=== PATIENT | female | born 1970 | race Caucasian/White ===

== ENCOUNTER 2016-04-04 13:11 | Emergency (ER) | payer OTHER ==
[~2016-04-04] VITALS: Ht 157.5 cm; Wt 75.5 kg
[2016-04-04 13:16] VITALS: Ht 157.5 cm; Wt 75.5 kg
[2016-04-04] MEDS ORDERED: DOCU-144 PO (13:51)
[2016-04-04] MEDS ORDERED: ULT50 PO (13:51)
[2016-04-04] MEDS ORDERED: BACTDS PO (13:51)
[2016-04-04] MEDS ORDERED: HYDR30CR75 PR (13:51)
--- NOTE | 2016-04-04 13:54 | ERD ---
ER Documentation Chief Complaint Date/Time DATE: 04/04/16 TIME: 13:52 Chief Complaint abdominal cramping and rectal bleeding since 10 am today HPI This 45-year-old female presents with rectal bleeding starting this morning. She has some pain in her sacral area as well. She denies any fevers vomiting, shortness of breath or chest pain. ROS All systems reviewed and are negative except as per history of present illness. Medications Home Meds Active Scripts Sulfamethoxazole-Trimethoprim* (Bactrim* DS) 800-160 Mg Tab, 1 TAB PO BID, #20 TAB Prov:ARIEL COLLADO MD 04/04/16 Hydrocortisone Acetate* (Anusol-HC*) 30 Gm Cream.gm., 1 APPLIC [place] BID for 10 Days, TUB Prov:ARIEL COLLADO MD 04/04/16 Docusate Sodium* (Colace*) 100 Mg Capsule, 100 MG PO BID, #60 CAP Prov:ARIEL COLLADO MD 04/04/16 Tramadol HCl (Tramadol HCl) 50 Mg Tablet, 50 MG PO Q4 Y for PAIN, #20 TAB Prov:ARIEL COLLADO MD 04/04/16 PMhx/Soc History of Surgery: No Anesthesia Reaction: No Hx Neurological Disorder: No Hx Respiratory Disorders: No Hx Cardiac Disorders: No Hx Psychiatric Problems: No Hx Miscellaneous Medical Probl: No Hx Alcohol Use: No Hx Substance Use: No Hx Tobacco Use: No Smoking Status: Never smoker Physical Exam Vitals Vital Signs Date Time Temp Pulse Resp B/P Pulse Ox O2 Delivery O2 Flow Rate FiO2 04/04/16 13:16 98.3 82 19 129/70 99 Physical Exam Const: [] Alert, [id number]. Head: Atraumatic Eyes: Normal Conjunctiva ENT: Normal External Ears, Nose and Mouth. Neck: Full range of motion..~ No meningismus. Resp: Clear to auscultation bilaterally Cardio: Regular rate and rhythm, no murmurs Abd: Soft, non tender, non distended. Normal bowel sounds Skin: No petechiae or rashes. On the rectal area there is some area of redundancy with a small draining likely small abscess or hemorrhoid. There is no significant erythema, induration and no fluctuance appreciated. There is no active bleeding. Back: No midline or flank tenderness Ext: No cyanosis, or edema Neur: Awake and alert Psych: Normal Mood and Affect Procedures/MDM This patient presents status post bleeding from the rectal area which appears to be from a small perianal abscess spontaneous drainage. Signs and symptoms are consistent with a deep perirectal abscess or sepsis. Lesion does not appear to be amenable to reexcision and drainage as it is small. She will be treated with Bactrim, Anusol, Colace and tramadol. Patient is advised to follow -up with primary doctor this week and I am recommending general surgery evaluation for persistent symptoms. She should otherwise return for fevers, worsening pain, redness, new or worsening symptoms. The patient was stable with no new complaints during the ER course. Clinically, there is no current evidence to suggest meningitis, sepsis, acute abdomen, pneumonia, acute coronary syndrome, pulmonary embolism, or any other emergent condition appearing to require further evaluation or hospitalization. The patient should certainly return for any new or worsening symptoms per the aftercare instructions. They should otherwise follow-up with her primary care doctor for reevaluation this week. Departure Diagnosis: Primary Impression: Rectal bleed Condition: Stable Patient Instructions: Katlyn-Anal Abscess, Abx Only, Rectal Bleed, Stable Referrals: HARSHA DEGROOT MD Additional Instructions: Cheque otro vez con levi doctor primario en el proximo maxwell or regresa para mas o nueva simptomas. recomiendo un specialista ( cirujano) para mas simptomas. Va al levi doctor/ specialista para mas evaluacon en el proximo semana. posiblemente necesita autorizado de levi doctor primario para specialista. Regresa para fiebre, o mas o nueva simptomas. ARIEL COLLADO MD Apr 04, 2016 13:54
== END 2016-04-04 14:05 | disposition home or self-care (01) ==
LOC: FTE 13:11
DX: K62.5 Hemorrhage of anus and rectum (principal)
CPT/HCPCS: 99284

== ENCOUNTER 2016-08-21 06:01 | Day surgery (SDC) | payer OTHER ==
[~2016-08-21] VITALS: Ht 157.5 cm; Wt 72.9 kg
[~2016-08-21 06:01] MED LIST: BACTDS PO; DOCU-144 PO; HYDR30CR75 PR; TRAM50TA2 PO
[2016-08-21 06:50] VITALS: Ht 157.5 cm; Wt 72.9 kg
[2016-08-21] MEDS ORDERED: OMEP10CA4 PO (06:59)
[2016-08-21 07:24] VITALS: BP 114/69; PULSE 79; RESP 16
[2016-08-21] MEDS ORDERED: FENTAnyl 50 MCG/ML VIAL ONE (08:07)
[2016-08-21] MEDS ORDERED: MIDAZOLAM 1 MG/ML 2 ML INJ ONE ×2 (08:07)
[2016-08-21 08:32] VITALS: BP 103/67; PULSE 69; RESP 19
--- NOTE | 2016-08-21 14:02 | GILP ---
DATE OF PROCEDURE: 08/21/2016 NAME OF PROCEDURE: Colonoscopy. SURGEON: Dodie Bravo MD PREOPERATIVE DIAGNOSIS: Rectal bleeding. POSTOPERATIVE DIAGNOSES: 1. Colonoscopy all the way to the cecum. 2. Internal and external hemorrhoids. INDICATION FOR THE PROCEDURE: Ms. Rebecca Alexis is a 45-year-old female patient who was complaining o f rectal bleeding. The patient was scheduled for colonoscopy for further evaluation. The procedure and possible complications were well explained to the patient, she understood and cons ented to the procedure. DESCRIPTION OF PROCEDURE: Under the influence of fentanyl and Versed, the colonoscope was carefully introduced into the rectum and under direct vision, it was advanced all the way to the cecum. FINDINGS: The patient had internal and external hemorrhoids. No colitis or neoplasm was identified . She tolerated the procedure very well and there was no complication from the procedure. At the end of the procedure, she was awake with stable vital signs and she was discharged home to the care of h er family. IMPRESSION: 1. Colonoscopy all the way to the cecum. 2. Internal and external hemorrhoids. PLAN: 1. Anusol-HC 2.5% cream at bedtime p.r.n. 2. Next screening colonoscopy in 10 years. Dictated By: DODIE CAI/CONY Conf#: [id number] DID#: [id number] CC: DODIE BRAVO MD;*EndCC*
== END 2016-08-21 10:13 | disposition home or self-care (01) ==
LOC: GIL 06:01
PROVIDERS: ATTEND Internal Medicine Gastroenterology
DX: K64.8 Other hemorrhoids (principal); K64.4 Residual hemorrhoidal skin tags
CPT/HCPCS: 45378; 84703; J2250; J3010